=== PATIENT | male | born 1965 | race Caucasian/White ===

== ENCOUNTER 2016-04-02 07:14 | Emergency (ER) | payer OTHER ==
[2016-04-02] MEDS ORDERED: IOPAMIDOL 300 (61%) 100 ML VIAL IV ONE (07:15)
[2016-04-02 07:54] LABS: ABSOLUTE NEUTROPHIL COUNT 3.9 K/mm3 (1.8-7.7); BASO % 0.3 % (0.2-1.0); EOS # 0.1 (0.0-0.5); EOS % 2.4 % (0.9-2.9); HEMATOCRIT 45.3 % (32.0-52.0); HEMOGLOBIN 15.3 gm/l (14.0-18.0); IMM NEUT% 0.3 % (0-1); LYMPH # 1.3 (1.0-4.8); LYMPH % 21.8 % (15-45); MEAN CELL VOLUME 88.3 fl (80.0-94.0); MEAN CORPUSCULAR HEMOGLOBIN 29.8 pg (27.0-31.0); MEAN CORPUSCULAR HGB CONC 33.8 g/dl (33.0-37.0); MEAN PLATELET VOLUME 10.1 fl (7.4-10.4); MONO # 0.5 (0.0-0.8); MONO % 7.8 % (4-12); NEUT % 67.4 % (43-75); PLATELET COUNT 181 K/mm3 (130-400); RED CELL DISTRIBUTION WIDTH 11.6 % (11.5-14.5)
[2016-04-02] MEDS ORDERED: DEXAMETHASONE SOD PHOS 10 MG/1 ML VIAL ONE (07:58)
[2016-04-02] MEDS ORDERED: KETOROLAC TROMETHAMINE 30 MG/ML 1 ML VIAL ONE (07:58)
[2016-04-02 08:11] LABS: ALB/GLOB RATIO 1.8 (>1.0); ALBUMIN 4.2 gm/dL (3.5-5.7); CALCIUM 8.6 mg/dL (8.6-10.3)
[2016-04-02] MEDS ORDERED: CLINDAMYCIN 900 MG PREMIX 50 ML IV ONE (08:24)
--- NOTE | 2016-04-02 09:11 | CT ---
NECK SOFT TISSUE W/ CON COMPARISON: None. HISTORY: Sore throat. TECHNIQUE: Intravenous injection 80 mL of Isovue 300. Using a [employer] [address] scanner, images obtained from the superior mediastinum to the skull base. An automated dose reduction technique was used to minimize patient radiation dose. Dose information: CTDIvol (mGy): 12.60 DLP(mGycm): 441.60 FINDINGS: Lymph nodes: No lymphadenopathy. Superior mediastinum: Normal. Vessels: Normal. Nasopharynx: Normal. Oropharynx: Normal. Normal tonsils. Hypopharynx: Normal. Larynx: Normal. Epiglottis: Normal. Esophagus: Normal. Trachea: Normal. Tongue: Normal. Salivary glands: Normal. Thyroid gland: Normal. Retropharyngeal space: Normal. Parapharyngeal space: Normal. Paranasal sinuses: Normal. Nasal passages: Mild mucosal thickening of the right maxillary sinus. Facial bones: Normal. Orbits: Normal. Cervical spine: Normal. Lung apices: Normal. Paraspinal muscles: Normal. IMPRESSION: 1. Mild mucosal thickening of the right maxillary sinus. Otherwise normal CT of the neck soft tissues. No airway obstruction. The tonsils are normal. The epiglottis is normal. There is no lymphadenopathy. The results were discussed with Lane Koenig M.D. 04/02/2016 at 19:05
== END 2016-04-02 09:33 | disposition home or self-care (01) ==
LOC: ED 07:14
DX: J02.9 Acute pharyngitis, unspecified (principal); R06.02 Shortness of breath
CPT/HCPCS: 85025; 80053; 87880; 70491; 96375 ×2; 99284 ×2; 96365; J1100; J1885; Q9967